=== PATIENT | female | born 1985 | race Caucasian/White ===

== ENCOUNTER → 2019-04-22 | Outpatient (CLI) | payer BC | LOC: SJCVCIMAG 11:43 | DX: I36.1 Nonrheumatic tricuspid (valve) insufficiency (principal); E04.2 Nontoxic multinodular goiter; I47.1 Supraventricular tachycardia; E05.00 Thyrotoxicosis with diffuse goiter without thyrotoxic crisis or storm; E03.9 Hypothyroidism, unspecified ==

== ENCOUNTER → 2021-01-17 | Outpatient (CLI) | payer BC | LOC: SJCVCIMAG 01-10 07:51 | PROVIDERS: ATTEND Internal Medicine Cardiovascular Disease | DX: I07.1 Rheumatic tricuspid insufficiency (principal); E05.00 Thyrotoxicosis with diffuse goiter without thyrotoxic crisis or storm; E78.5 Hyperlipidemia, unspecified; E03.9 Hypothyroidism, unspecified; R00.2 Palpitations; I47.1 Supraventricular tachycardia; Z79.899 Other long term (current) drug therapy ==